=== PATIENT | female | born 1990 | race Caucasian/White ===

== ENCOUNTER → 2020-01-12 09:49 | Outpatient (CLI) | payer OTHER, SELFPAY ==
--- NOTE | 2020-01-12 09:51 | DI.US.S_ITS ---
PROCEDURE: US PELVIC COMPLETE INDICATIONS: DUB 8 MONTHS POST ; POSSIBLE RPOC TECHNIQUE: Real-time scanning was performed of the pelvic organs, with image documentation. Additional endovaginal scanning was necessary due to incomplete visualization of the adnexal and endometrial structures by transabdominal scanning. COMPARISON: None. FINDINGS: Transabdominal scanning: Limited scanning through the kidneys shows no hydronephrosis. No pathologic free abdominal or pelvic fluid. Endovaginal scanning: Uterus: Uterus is normal in size at 4.5 x 5.8 x 8.0 cm, anteverted. The endometrium measures 7.7 mm in combined thickness. No retained products of conception seen. Ovaries: Normal ovaries bilaterally. IMPRESSION: Sign of retained products of conception normal appearance of the uterus and endometrial lining. Dictated by: Kendrick Cardozo M.D. on 01/12/2020 at 10:42 Approved by: Kendrick Cardozo M.D. on 01/12/2020 at 10:43
== END ==
PROVIDERS: Referring Provider Obstetrics & Gynecology; Visit Provider Obstetrics & Gynecology
DX: O73.0 Retained placenta without hemorrhage (principal)
CPT/HCPCS: 76830; 76856

== ENCOUNTER → 2020-03-03 12:07 | Outpatient (CLI) | payer OTHER, SELFPAY ==
[2020-03-03 16:11] LABS: Urine N gonorrhoeae NOT DETECTED
[2020-03-03 17:14] LABS: Urine Chlamydia NOT DETECTED
== END ==
PROVIDERS: Visit Provider Obstetrics & Gynecology
DX: Z34.81 Encounter for supervision of other normal pregnancy, first trimester (principal); Z11.3 Encounter for screening for infections with a predominantly sexual mode of transmission; Z3A.08 8 weeks gestation of pregnancy
CPT/HCPCS: 87491; 87591

== ENCOUNTER → 2020-04-04 16:24 | Outpatient (CLI) | payer OTHER, SELFPAY ==
[2020-04-04 18:17] LABS: Add Manual Diff / Slide Review NO; Basophils Absolute Auto 0 /uL (0-100); Basophils Percent Auto 0.3 % (0-2); Eosinophils Absolute Auto 100 /uL (0-450); Eosinophils Percent Auto 1.4 % (2-4); Hematocrit 34.4 % (36-46); Hemoglobin 11.9 g/dL (12.0-16.0); Lymphocytes Absolute Auto 2300 /uL (1100-4500); Lymphocytes Percent Auto 27.5 % (25-40); Mean Corpuscular HGB Conc 34.6 % (30-36); Mean Corpuscular Volume 92.4 fL (80-100); Monocytes Absolute Auto 700 /uL (0-900); Monocytes Percent Auto 8.3 % (3-14); Neutrophils Absolute Auto 5300 /uL (1500-7000); Neutrophils Percent Auto 62.5 % (50-75); Platelet Count 214 X10^3/uL (150-400); Red Blood Cell Count 3.73 X10^6/uL (4.0-5.2); Red Cell Distribution Width 12.6 % (11.6-14.8); White Blood Cell Count 8.4 X10^3/uL (4.5-11.0)
[2020-04-04 18:27] LABS: Hepatitis B Surface Antigen NEGATIVE s/c (NEGATIVE)
[2020-04-04 18:45] LABS: HIV 1 & 2 Ab/Ag 4th Gen Combo NEGATIVE (NEGATIVE); Hep C Virus Ab w/Reflex Quant NEGATIVE s/c (NEGATIVE)
[2020-04-05 08:13] LABS: RPR Screen Non Reactive (Non Reactive)
[2020-04-05 11:51] LABS: Varicella IgG Antibody 898 index (Immune >165)
== END ==
PROVIDERS: Referring Provider Obstetrics & Gynecology; Visit Provider Obstetrics & Gynecology
DX: Z34.81 Encounter for supervision of other normal pregnancy, first trimester (principal); Z36.0 Encounter for antenatal screening for chromosomal anomalies
CPT/HCPCS: 36415; 80055; 84163; 86787; 86803; 86850; 86900; 86901; 87389

== ENCOUNTER → 2020-05-10 16:30 | Outpatient (CLI) | payer OTHER, SELFPAY ==
[2020-05-19 13:34] LABS: Sequential Screen 2nd Trimeste SEE SEPARATE REPORTS
== END ==
PROVIDERS: Referring Provider Obstetrics & Gynecology; Visit Provider Obstetrics & Gynecology
DX: Z34.92 Encounter for supervision of normal pregnancy, unspecified, second trimester (principal)
CPT/HCPCS: 36415; 82105; 82677; 84163; 84702; 86336

== ENCOUNTER → 2020-05-25 15:07 | Outpatient (CLI) | payer OTHER, SELFPAY ==
--- NOTE | 2020-05-25 15:09 | DI.US.S_ITS ---
PROCEDURE: US OB >= 14 WEEKS FETUS INDICATIONS: ANATOMY OUTSIDE/PRIOR DATING DATA: Last menstrual period (LMP): 01/21/2020 LMP-based estimated date of delivery (QIAN): 10/27/2020 . First dating scan (date and location): 03/03/2020 . Estimated date of delivery (QIAN) from first dating scan: 10/13/2020 . TECHNIQUE: Real-time scanning was performed of the fetus, with image documentation and biometric measurements. Endovaginal scanning: No COMPARISON: [facility], , OB <= 14 WEEKS FETUS, 03/03/2020, 11:51. FINDINGS: General: A single living intrauterine gestation is present. Presentation: Variable. Placenta: Placental position is anterior , without previa. Amniotic fluid index: 15.3 cm, normal range is 5-24 cm. heart rate: 145 beats per minute. Maternal cervical canal: 5.4 cm long. Normal lower limit is 2.5 cm biometrics: Biparietal diameter: 20 weeks 3 days Head circumference: 19 weeks 5 days Abdominal circumference: 20 weeks 2 days Femur length: 20 weeks Estimated gestational age from initial scan: 19 weeks 6 days Composite gestational age from present scan: 20 weeks 1 day Estimated weight and percentile: 337 g; 64th percentile Measurement variability for biometric dating: +/- 7 days from 14 weeks to 15 weeks 6 days gestation, +/- 10 days from 16 weeks to 21 weeks 6 days gestation, +/- 2 weeks from 22 weeks to 27 weeks 6 days gestation, +/- 3 weeks for 28 weeks gestation or later. weight reference: 4500 g or EFW >90/95% is considered macrosomia or large for gestational age. EFW <10% is small for gestational age. EFW 5% or less is considered intra-uterine growth restriction. Anatomic survey: Neuro: Ventricles are non-dilated at less than 10 mm. Cisterna magna is normal at 3-11 mm. Cerebellum is normal in size and morphology. Nuchal skin fold: Normal at less than 6 mm between 14-21 weeks gestational age. Face: Nose and lips, facial profile are normal. Spine: No evidence for spina bifida. Heart: 4-chambered heart is present, with normal ventricular outflow tracts. Diaphragm: Diaphragm is intact. Stomach: Left-sided stomach is present. Kidneys: No hydronephrosis. Normal is less than 5 mm in 2nd trimester, less than 7 mm in 3rd trimester. Cord: 3-vessel cord has orthotopic insertion. Bladder: Normal in size. Extremities: All 4 extremities identified. IMPRESSION: 1. Single living IUP redemonstrated and interval growth is normal. 2. Normal anatomic survey. Dictated by: Jalen Hedrick [facility] Interpreted: Ganesh Acreo MD on 05/25/2020 at 16:41 Approved by: Ganesh Arceo M.D. on 05/28/2020 at 8:33
== END ==
PROVIDERS: Referring Provider Obstetrics & Gynecology; Visit Provider Obstetrics & Gynecology
DX: Z34.82 Encounter for supervision of other normal pregnancy, second trimester (principal); Z3A.19 19 weeks gestation of pregnancy
CPT/HCPCS: 76811

== ENCOUNTER → 2020-07-07 11:48 | Outpatient (CLI) | payer OTHER, SELFPAY ==
[2020-07-07 12:12] LABS: Hematocrit 34.4 % (36-46); Hemoglobin 11.5 g/dL (12.0-16.0); Mean Corpuscular HGB Conc 33.4 % (30-36); Mean Corpuscular Volume 95.8 fL (80-100); Platelet Count 209 X10^3/uL (150-400); Red Blood Cell Count 3.59 X10^6/uL (4.0-5.2); Red Cell Distribution Width 12.5 % (11.6-14.8); White Blood Cell Count 9.2 X10^3/uL (4.5-11.0)
[2020-07-07 12:32] LABS: GTT (PREG) 1 Hour PP 50gm Dose 107 mg/dL (76-139)
== END ==
PROVIDERS: Referring Provider Nurse Practitioner Obstetrics & Gynecology; Visit Provider Nurse Practitioner Obstetrics & Gynecology
DX: Z34.90 Encounter for supervision of normal pregnancy, unspecified, unspecified trimester (principal); Z13.1 Encounter for screening for diabetes mellitus; Z3A.26 26 weeks gestation of pregnancy
CPT/HCPCS: 36415; 82950; 85027

== ENCOUNTER → 2020-09-19 11:45 | Outpatient (ROUT) | payer OTHER, SELFPAY | PROVIDERS: Visit Provider Nurse Practitioner Obstetrics & Gynecology | DX: Z34.90 Encounter for supervision of normal pregnancy, unspecified, unspecified trimester (principal); Z36.85 Encounter for antenatal screening for Streptococcus B; Z3A.36 36 weeks gestation of pregnancy | CPT/HCPCS: 87081 ==

== ENCOUNTER 2020-09-29 08:58 | Outpatient (CLI) | payer OTHER, SELFPAY ==
--- NOTE | 2020-09-29 09:05 | P.TNLD_ITS ---
Visit Information Visit Information Date of evaluation: 09/29/20 Primary OB Provider: Margy Pate On-call OB Provider: Margy Pate Reason for Evaluation: Yes rupture of membranes Comments/Additional reasons for admission: 29YO # 38wks by early US who presents for evaluation of suspected PROM. [place] a warm pop during sex last night with a large amount of clear fluid on the bed. Discussed recommendation for evaluation last night. Sarah declined to come in until this morning since she was feeling good FM and no contractions. Did not notice contractions or continued leaking of fluid throughout the night. No vaginal bleeding. Uncomplicated care with CNM (transferred in from [facility] @ 23wks [facility]). Desires low intervention . Vital Signs Vital Signs: BP 107/63, HR 101bpm, T 35.9C Temporal PFSH Medical History Basal cell carcinoma (BCC) in situ of skin (~08/2019) Heavy menses (~2004) Mild depression (~06/2019) Vaginal delivery Surgical History History of breast augmentation (~2009) [place] teeth extracted (~2007) Family History Grandfather Cancer Mother H/O: hysterectomy Alice's thyroiditis Father No problems noted. Grandmother AIDS (acquired immune deficiency syndrome) Grandfather Alcoholism Liver disease Grandmother No problems noted. 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 occupational exposures/hazards: No special fabiola needs: No seatbelt use: always helmet use: Yes water heater temp set < 120 deg: Yes working smoke detector in home: Yes fire extinguisher in home: Yes Smoking Status: Never smoker second hand exposure: No alcohol intake: former (Alcohol 1 x a week socially when non-.) substance use type: does not use during the past year weight has: increased > 10 lbs well-balanced diet: daily or most days daily servings fruits/ve-4 caffeine: Yes (minimal.) eating out: rarely or never Type(s) of exercise: walking, other (Playing with kids.) and yoga frequency: 3-4 times per week Review of Systems Review of Systems ROS: Yes All systems reviewed with the patient and are negative except as otherwise documented Exam Vital Signs (past 8 hours): see above Presentation: vertex Other: CE deferred Evaluation Evaluation Baseline heart rate: 145 Variability: Moderate (11-25) monitor accelerations: Present Monitor Decelerations: Absent Contraction Frequency (minutes): 0 Category of Tracing: Reactive Non-invasive Membranes Rupture Test: negative Diagnosis, Plan/Disposition Final Diagnosis (1) Suspected problem with amniotic cavity and membrane not found: Status: Acute Plan/Disposition Plan: Discharge to home with routine labor precautions
== END 2020-09-29 09:36 | disposition home or self-care (01) ==
LOC: OB 09-30 08:26
PROVIDERS: Referring Provider Nurse Practitioner Obstetrics & Gynecology; Visit Provider Nurse Practitioner Obstetrics & Gynecology
DX: Z03.71 Encounter for suspected problem with amniotic cavity and membrane ruled out (principal); Z3A.38 38 weeks gestation of pregnancy
CPT/HCPCS: 59025; 84112; G0378; G0379

== ENCOUNTER 2020-10-10 05:15 | Inpatient (IN) | payer OTHER, SELFPAY ==
[2020-10-10 06:16] VITALS: BP 117/66
[2020-10-10 06:27] LABS: COVID19 - ADMIT (NP swab/PCR) Negative (Negative)
[2020-10-10 06:35] LABS: Add Manual Diff / Slide Review NO; Basophils Absolute Auto 0 /uL (0-100); Basophils Percent Auto 0.5 % (0-2); Eosinophils Absolute Auto 0 /uL (0-450); Eosinophils Percent Auto 0.2 % (2-4); Hematocrit 35.2 % (36-46); Hemoglobin 11.7 g/dL (12.0-16.0); Lymphocytes Absolute Auto 1800 /uL (1100-4500); Lymphocytes Percent Auto 18.5 % (25-40); Mean Corpuscular HGB Conc 33.4 % (30-36); Mean Corpuscular Hemoglobin 30.3 PG (26-34); Mean Corpuscular Volume 90.8 fL (80-100); Monocytes Absolute Auto 800 /uL (0-900); Monocytes Percent Auto 8.6 % (3-14); Neutrophils Absolute Auto 7000 /uL (1500-7000); Neutrophils Percent Auto 72.2 % (50-75); Platelet Count 194 X10^3/uL (150-400); Red Blood Cell Count 3.87 X10^6/uL (4.0-5.2); Red Cell Distribution Width 12.8 % (11.6-14.8); White Blood Cell Count 9.8 X10^3/uL (4.5-11.0)
--- NOTE | 2020-10-10 07:00 | PM.OBHP.1 ---
OB HPI Date/Time Date of admission: 10/10/20 Date Patient Seen: 10/10/20 Time Patient Seen: 06:00 History of Present Condition Chief complaint: MATERNITY : 3 Para: 2 Estimated Date of Delivery: 10/13/20 Estimated Gestational Age (weeks): 39.4 Narrative: Sarah Lucas is a 29 year old female in active labor. Spontaneous contractions began around midnight, becoming strong around 0400. Has been vomiting at home prior to arrival. No vaginal bleeding or leaking of fluid. Uncomplicated care with CNM (transferred in from [facility] @ 23wks). Desires low intervention , declines IV access. , [place], is present andsupportive. History of Present care: good care, initiated at week # (8), number of visits (12) and pounds weight gain (39) Dating criteria: based on 1st trimester US only Ultrasounds: normal mid trimester US Obstetrical complications: none Medical complications: none Preadmission Labs Blood type: O (+) positive -: Antibody screen: negative, GBS status: negative, HBsAG: negative, HIV: negative and RPR/VDLR: negative -: Chlamydia screen: not detected and Gonorrhea screen: not detected -: Rubella: immune and Varicella: immune HCT: 34.4 HCAB: negative Sequential screen: Negative 1 hr GTT: 107 Prior (ies) History: 07/12/17: NSVB @ 40wks, 8hr labor, 6#14oz female, retained placenta, no meds 05/13/19: NSVB @ 39.2wks, 7hr labor, 7#8oz, male, retained placenta, no meds Evaluation Evaluation Baseline heart rate: 155 Variability: Moderate (11-25) monitor accelerations: Present Monitor Decelerations: Absent Contraction Frequency (minutes): 2 Uterine Contraction Intensity: Strong/Firm Category of Tracing: Reactive Status: Category l Cervical dilation (cm): 8 Cervical effacement (%): 90 station: -2 PFSH Medical History Basal cell carcinoma (BCC) in situ of skin (~08/2019) Heavy menses (~2004) Mild depression (~06/2019) Vaginal delivery Surgical History History of breast augmentation (~2009) [place] teeth extracted (~2007) Family History Grandfather Cancer Mother H/O: hysterectomy Alice's thyroiditis Father No problems noted. Grandmother AIDS (acquired immune deficiency syndrome) Grandfather Alcoholism Liver disease Grandmother No problems noted. 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 occupational exposures/hazards: No special fabiola needs: No seatbelt use: always helmet use: Yes water heater temp set < 120 deg: Yes working smoke detector in home: Yes fire extinguisher in home: Yes Smoking Status: Never smoker second hand exposure: No alcohol intake: former (Alcohol 1 x a week socially when non-.) substance use type: does not use during the past year weight has: increased > 10 lbs well-balanced diet: daily or most days daily servings fruits/ve-4 caffeine: Yes (minimal.) eating out: rarely or never Type(s) of exercise: walking, other (Playing with kids.) and yoga frequency: 3-4 times per week Meds Home Medications and Allergies Home Medications Medication Instructions Recorded Confirmed Type cod liver oil 1 cap PO BID 02/25/20 10/10/20 History folic acid 800 mcg tablet 0.8 mg PO DAILY 02/25/20 10/10/20 History multivitamin 1 tab PO DAILY 02/25/20 10/10/20 History omega-3 fatty acids-fish oil 300 1 cap PO DAILY 02/25/20 10/10/20 History mg-1,000 mg capsule Allergies Allergy/AdvReac Type Severity Reaction Status Date / Time No Known Drug Allergies Allergy Verified 10/10/20 06:21 Review of Systems Review of Systems ROS: Yes All systems reviewed with the patient and are negative except as otherwise documented Exam Vital Signs (past 8 hours): - 10/10/20 06:16 Blood Pressure 117/66 HR 85bpm, T 35.9C Temporal Resp Effort & Inspection: normal respiratory effort Auscultation: clear to auscultation bilaterally Cardio Rate: regular rate Rhythm: regular rhythm Heart Sounds: S1 normal and S2 normal Presentation: vertex Objective Labs Result Diagrams: 10/10/20 06:12 Labs: Laboratory Results - last 24 hr 10/10/20 10/10/20 10/10/20 05:30 06:12 06:12 WBC 9.8 RBC 3.87 L Hgb 11.7 L Hct 35.2 L MCV 90.8 MCH 30.3 MCHC 33.4 RDW 12.8 Plt Count 194 Neut % (Auto) 72.2 Lymph % (Auto) 18.5 L [place]eman % (Auto) 8.6 Eos % (Auto) 0.2 L Baso % (Auto) 0.5 Neut # (Auto) 7000 Lymph # (Auto) 1800 Hodgeman # (Auto) 800 Eos # (Auto) 0 Baso # (Auto) 0 SARS-CoV-2 (PCR) Negative Blood Type O Positive Antibody Screen Negative Assessment and Plan Assessment and Plan Assessment and Plan narrative: A: Term multipara Active labor No indication for GBS prophylaxis Cat I FHR P: Admit, routine orders. Hold SL IV. Continuous labor support. Anticipate NSVB.
--- NOTE | 2020-10-10 08:14 | PM.OBPRVD ---
Labor & Delivery Delivery date: 10/10/20 Intrapartal Events: None Cervical ripening method: none Induction method: none Delivery augmentation: rupture of membranes Delivery monitor: external FHT Route of delivery: Episiotomy description: None L&D Laceration Description: None Estimated blood loss (mL): 150 Anesthesia Type: None Narrative: Sarah labored well without medication. AROM, clear fluid was performed, at her request. Sarah was presumed complete with spontaneous urge to push. FHR was reassuring by IA throughout labor. NSVB of a vigorous baby girl in PELON position with no nuchal cord or shoulder dystocia. Terminal meconium was noted. was passed through maternal legs and Sarah was assisted to semi Folwer's position with her daughter in her arms. After cessation of pulsation, the cord was double clamped and cut. Hospital cord blood hold sample was collected. Gentle cord traction and single maternal push led to spontaneous, Schultze delivery of an apparently intact placenta, mambranes and 3VC. Fundus firm and bleeding minimal. Vagina and perineum inspected and intact. QBL 150mL. Baby 1: gender: Female Presentation: vertex Position: Right Occiput Anterior Placenta delivery description: Spontaneous Cord Vessel Description: 3 Vessels score (1 min): 8 score (5 min): 9 Plan for aftercare: Routine care
[2020-10-10] MEDS: DERMOPLAST SPRAY 20% 60 ML 1 SPRAY TOP (09:07)
[2020-10-10] MEDS: IBUPROFEN 600 MG TABLET PO ×3 (09:08→21:40)
[2020-10-10 15:06] VITALS: TEMP 36.7
[2020-10-11] MEDS: IBUPROFEN 600 MG TABLET PO ×2 (05:33→11:53)
--- NOTE | 2020-10-11 08:42 | P.DS_ITS ---
Discharge Providers Provider Date of admission: 10/10/20 05:15 Discharge Date: 10/11/20 Primary care physician: DEANNA Pate Consults: 10/11/20 08:13 Consult to Armature Repairer Routine Comment: Discharge provider: Margy Pate CNM Summary Hospital Course Date Patient Seen: 10/11/20 Time Patient Seen: 08:42 Diagnoses: o80.0 Hospital Course: Wil is day 1 from an uncomplicated, unmedicated NSVB. Sarah is voiding, ambulating and independently, feeling ready for discharge to home this morning. Tolerating a general diet. Vaginal bleeding is light. Pain is well controlled with ibuprofen and Tylenol. Peripartum Data Delivery Method: Natural Vaginal Laceration Description: None Episiotomy description: None complications: none [place] 1: Gender: Female Disposition of : home Discharge Diagnosis (1) Encounter for full-term uncomplicated delivery: Start Date: 10/10/20 Start Time: 05:30 Status: Acute Status at Discharge Cognitive/behavioral status at discharge: oriented and calm Functional status at discharge: independent ambulation Overall status at discharge: patient is progressing back to baseline Time Spent with Patient Time attestation: Total time spent providing and/or coordinating discharge services: Time spent: Less than 30 minutes Specific discharge activities: education Objective Labs Result Diagrams: 10/10/20 06:12 Exam Vital Signs (past 8 hours): BP 104/65mmHg, HR 84bpm, RR 18/min, T 97.6F Temporal Other: Fundus firm @ u-1, lochia light, perineum intact Discharge Plan Discharge Plan Patient Disposition: Home Discharge orders & Medications Prescriptions: New ibuprofen 600 mg Tablet 600 mg PO Q6HR PRN (Reason: Pain, Mild (1-3)) 14 Days Qty: 60 RF: 0 Continued cod liver oil Capsule 1 cap PO BID RF: 0 folic acid 800 mcg tablet 0.8 mg PO DAILY RF: 0 omega-3 fatty acids-fish oil 300-1,000 mg capsule 1 cap PO DAILY RF: 0 multivitamin Tablet 1 tab PO DAILY RF: 0 Follow up/Referrals: Margy Pate CNM [[employer]] - (Follow-up 10/26/20 @ 0815 by Telehealth (link in email) Follow-up 11/21/20 @ 0900 in office) Diet/Activity/Treatments Diet: Regular Activity: pelvic rest x 6 weeks Skin/Wound/Dressing Care Report to your healthcare provider any signs of infection, such as:: chills, fev er, increased pain, unusual drainage and unusual redness Visit Report/Discharge Packet Instructions: Depression
[2020-10-11 10:53] VITALS: BP 96/56; PULSE 71; RESP 16; TEMP 36.7
== END 2020-10-11 12:10 | disposition home or self-care (01) | DRG 807 ==
PROVIDERS: Admitting Provider Nurse Practitioner Obstetrics & Gynecology; Referring Provider Nurse Practitioner Obstetrics & Gynecology; Visit Provider Nurse Practitioner Obstetrics & Gynecology
DX: O77.0 Labor and delivery complicated by meconium in amniotic fluid (principal); Z37.0 Single live birth; Z3A.39 39 weeks gestation of pregnancy
CPT/HCPCS: 36415; 59050; 85025; 86850; 86900; 86901; 87635; C9803; G0379

== ENCOUNTER → 2024-01-08 09:24 | Outpatient (CLI) | payer OTHER, SELFPAY ==
[2024-01-08 10:25] LABS: Add Manual Diff / Slide Review NO; Basophils Absolute Auto 0 /uL (0-100); Basophils Percent Auto 0.3 % (0-2); Eosinophils Absolute Auto 200 /uL (0-450); Hematocrit 36.1 % (36-46); Hemoglobin 12.3 g/dL (12.0-16.0); Lymphocytes Absolute Auto 2200 /uL (1100-4500); Lymphocytes Percent Auto 36.8 % (25-40); Mean Corpuscular HGB Conc 34.1 % (30-36); Mean Corpuscular Hemoglobin 31.5 PG (26-34); Mean Corpuscular Volume 92.4 fL (80-100); Monocytes Absolute Auto 700 /uL (0-900); Monocytes Percent Auto 10.9 % (3-14); Neutrophils Absolute Auto 2900 /uL (1500-7000); Platelet Count 250 X10^3/uL (150-400); Red Cell Distribution Width 12.8 % (11.6-14.8); White Blood Cell Count 6.1 X10^3/uL (4.5-11.0)
[2024-01-08 11:22] LABS: HEMOLYSIS < 15 (0-50); Iron 121 ug/dL (37-170)
[2024-01-08 11:28] LABS: Alanine Aminotransferase 16 IU/L (<35); Albumin 4.3 g/dL (3.5-5.0); Albumin Globulin Ratio 1.7 (1.0-2.8); Alkaline Phosphatase 77 U/L (38-126); Aspartate Aminotransferase 23 IU/L (14-36); BUN Creatinine Ratio 21.3 (6-22); Bilirubin Total 0.7 mg/dL (0.2-1.3); Blood Urea Nitrogen 16 mg/dL (7-17); Calcium 9.3 mg/dL (8.4-10.2); Carbon Dioxide 25 mmol/L (22-32); Chloride 105 mmol/L (98-107); Estimated Glomerular Filt Rate > 60 mL/min (>60); Globulin 2.5 g/dL (1.7-4.1); Glucose 88 mg/dL (70-100); HEMOLYSIS < 15 (0-50); Potassium 4.4 mmol/L (3.4-5.1); Sodium 137 mmol/L (137-145); Total Protein 6.8 g/dL (6.3-8.2)
[2024-01-08 11:32] LABS: Percent Iron Saturation 39 % (15-50); Total Iron Binding Capacity 307 ug/dL (265-497); Transferrin 270 mg/dL (206-381)
[2024-01-08 11:58] LABS: Ferritin 55 ng/mL (6-137)
== END ==
PROVIDERS: PCP Family Medicine; Referring Provider Family Medicine; Visit Provider Family Medicine
DX: E61.1 Iron deficiency (principal); E87.6 Hypokalemia; D04.9 Carcinoma in situ of skin, unspecified
CPT/HCPCS: 36415; 80053; 82728; 83540; 83550; 85025

== ENCOUNTER → 2024-04-26 09:55 | Outpatient (CLI) | payer OTHER, SELFPAY | PROVIDERS: PCP Family Medicine; Visit Provider Nurse Practitioner Family | DX: R30.0 Dysuria (principal) | CPT/HCPCS: 87077; 87086; 87186 ==

== ENCOUNTER → 2024-05-02 08:04 | Outpatient (CLI) | payer OTHER, SELFPAY ==
[2024-05-02 09:34] LABS: Appearance Urine UA CLEAR; Bilirubin Urine UA NEGATIVE (NEGATIVE); Color Urine UA YELLOW; Glucose Urine UA NEGATIVE (Negative); Ketones Urine UA NEGATIVE (NEGATIVE); Leukocyte Esterase Urine UA NEGATIVE (NEGATIVE); Nitrite Urine UA NEGATIVE (Negative); Occult Blood Urine UA NEGATIVE (Negative); Protein Urine UA NEGATIVE (Negative); Urobilinogen Urine UA 0.2 E.U./dL (0.2)
[2024-05-02 09:37] LABS: Urine Volume 10mL (spun); pH Urine UA 5.5 (4.5-8.0)
[2024-05-02 09:42] LABS: Bacteria Urine None Seen; Culture Indicated Urine Cult Not Indicated; RBC Urine None Seen (0-5/HPF); Squamous Epithelial Cell Urine 1-5 /HPF (0-5/HPF); WBC Urine None Seen (0-5/HPF)
[2024-05-02 09:50] LABS: Alanine Aminotransferase 16 IU/L (<35); Albumin 4.3 g/dL (3.5-5.0); Albumin Globulin Ratio 1.6 (1.0-2.8); Alkaline Phosphatase 56 U/L (38-126); Aspartate Aminotransferase 25 IU/L (14-36); Bilirubin Total 0.5 mg/dL (0.2-1.3); Blood Urea Nitrogen 9 mg/dL (7-17); Calcium 8.9 mg/dL (8.4-10.2); Carbon Dioxide 26 mmol/L (22-32); Chloride 105 mmol/L (98-107); Estimated Glomerular Filt Rate > 60 mL/min (>60); Globulin 2.7 g/dL (1.7-4.1); Glucose 101 mg/dL (70-100); HEMOLYSIS < 15 (0-50); Potassium 4.2 mmol/L (3.4-5.1); Sodium 140 mmol/L (137-145)
== END ==
PROVIDERS: Student in an Organized Health Care Education/Training Program; PCP Family Medicine; Referring Provider Family Medicine; Visit Provider Family Medicine
DX: N39.0 Urinary tract infection, site not specified (principal); R53.83 Other fatigue; M79.10 Myalgia, unspecified site
CPT/HCPCS: 36415; 80053; 81001; 87086